=== PATIENT | male | born 1980 | race Caucasian/White ===

== ENCOUNTER → 2017-04-13 | Outpatient (CLI) | payer OTHER ==
[~2017-04-13] MED LIST: AMOXICILLIN500 M1 PO; AMOXICILLIN500 MG PO; CLEOCIN150 MG PO; DOXYCYCLINE MO100 MG PO; HYDROCODONE BIT1 T11 PO; KEFLEX500 MG PO; LAMICTAL100 MG PO; MOTRIN,RUFEN800 MG PO; MOTRIN800 MG PO; NAPROSYN500 MG PO; NORCO 5-325 TA1 EACH PO; VICODIN ES 7501 TAB PO
== END | disposition home or self-care (01) ==
LOC: RESCLI 08:02
DX: J30.9 Allergic rhinitis, unspecified (principal); H00.014 Hordeolum externum left upper eyelid; F31.9 Bipolar disorder, unspecified; E66.3 Overweight; Z86.59 Personal history of other mental and behavioral disorders

== ENCOUNTER 2018-01-13 10:07 | Emergency (ER) | payer OTHER ==
[~2018-01-13] VITALS: Ht 182.8 cm; Wt 90.7 kg
[2018-01-13 10:11] VITALS: BP 157/108
[2018-01-13] MEDS ORDERED: NAPROSYN500 MG PO (10:15)
== END 2018-01-13 11:37 | disposition home or self-care (01) ==
LOC: ED 10:07
DX: S60.221A Contusion of right hand, initial encounter (principal); S50.01XA Contusion of right elbow, initial encounter; Z79.899 Other long term (current) drug therapy; X58.XXXA Exposure to other specified factors, initial encounter; Y93.89 Activity, other specified; Y92.89 Other specified places as the place of occurrence of the external cause; Y99.8 Other external cause status

== ENCOUNTER → 2018-11-03 | Outpatient (CLI) | payer BC | END | disposition home or self-care (01) | LOC: ORTHO 02:34 | DX: M79.89 Other specified soft tissue disorders (principal); M79.641 Pain in right hand ==

== ENCOUNTER 2019-04-01 13:20 | Emergency (ER) | payer BC ==
[~2019-04-01] VITALS: Ht 182.8 cm; Wt 88.5 kg
[2019-04-01 13:22] VITALS: BP 169/105
== END 2019-04-01 15:34 | disposition home or self-care (01) ==
LOC: ED 13:20
DX: S00.33XA Contusion of nose, initial encounter (principal); S00.531A Contusion of lip, initial encounter; Z79.2 Long term (current) use of antibiotics; Z79.899 Other long term (current) drug therapy; Y04.2XXA Assault by strike against or bumped into by another person, initial encounter; Y93.89 Activity, other specified; Y92.89 Other specified places as the place of occurrence of the external cause; Y99.8 Other external cause status

== ENCOUNTER 2022-03-03 15:14 | Inpatient (IN) | payer BC ==
[~2022-03-03] VITALS: Ht 180.3 cm; Wt 74.6 kg
[~2022-03-03 15:14] MED LIST changes: +ATARAX,VISTARIL50 MG PO; +BUSPIRONE HCL10 MG PO; +LAMOTRIGINE200 MG PO; +NATURE'S BLEND F1 MG PO; +OMEPRAZOLE MAGN20 MG PO; +VITAMIN B-1100 M1 PO; +VYVANSE30 MG PO
[2022-03-03 15:23] VITALS: BP 152/103
[2022-03-03 16:00] VITALS: BP 120/80
[2022-03-03 16:21] LABS: BASO % 0.6 % (0.0-1.0); EOS # 0.1 10*3/uL (0.0-0.4); EOS % 1.2 % (1.0-4.0); HEMATOCRIT 43.3 % (42.0-52.0); LYMPH # 1.9 10*3/uL (1.3-4.4); LYMPH % 38.8 % (27.0-41.0); MEAN CELL VOLUME 91.5 fl (80.0-94.0); MEAN CORPUSCULAR HGB 31.7 pg (27.0-31.0); MEAN CORPUSCULAR HGB CONC 34.6 g/dl (33.0-37.0); MEAN PLATELET VOLUME 8.7 fl (9.6-12.3); MONO # 0.4 10*3/uL (0.1-1.0); MONO % 8.8 % (3.0-9.0); NEUT # 2.5 10*3/uL (2.3-7.9); NEUT % 50.4 % (47.0-73.0); PLATELET COUNT AUTOMATED 168 10*3/uL (130-400); RED BLOOD COUNT 4.73 10*6/uL (4.50-5.90); RED CELL DISTRI WIDTH 14.2 % (0-14.5)
[2022-03-03 16:35] LABS: ALKALINE PHOSPHATASE 166 U/L (45-117); BUN 12 mg/dl (7-24); CHLORIDE 107 mmol/L (98-107); CREATININE 0.98 mg/dL (0.70-1.30); POTASSIUM 3.7 mmol/L (3.5-5.1); SGOT/AST 144 IU/L (3-35); SGPT/ALT 151 U/L (12-78); SODIUM 143 mmol/L (136-145); TOTAL PROTEIN 7.3 gm/dL (6.4-8.2)
[2022-03-03 16:43] LABS: THYROID STIM HORMONE (HS) 0.481 uIU/ml (0.358-4.75)
[2022-03-03 16:43] LABS: BILIRUBIN Negative (Negative); BLOOD Negative (Negative); CLARITY Clear (Clear); COLOR Yellow (Yellow); GLUCOSE Negative (Negative); KETONE Negative (Negative); LEUKO ESTERASE Negative (Negative); NITRITE Negative (Negative); PH 6.5 (4.5-8.0); SPECIFIC GRAVITY <= 1.005 (1.001-1.030); UROBILINOGEN 0.2 E.U./dl (0.0-1.0)
[2022-03-03 16:51] LABS: URINE AMPHETAMINES < 1000 (1000ng/ml); URINE BARBITURATES < 200 (200ng/ml); URINE BENZODIAZEPINES < 200 (200ng/ml); URINE CANNABINOIDS (THC) > 50 (50ng/ml); URINE COCAINE < 300 (300ng/ml); URINE METHADONE < 300 (300ng/ml); URINE OPIATES < 300 (300ng/ml)
[2022-03-03 16:54] LABS: URINE PHENCYCLIDINE < 25 (25ng/ml)
[2022-03-03 18:16] VITALS: BP 120/80
[2022-03-03] MEDS ORDERED: LAMICTAL200 MG PO (18:50)
[2022-03-03] MEDS ORDERED: BUPROPION HYDR150 M3 PO (18:51)
[2022-03-03] MEDS ORDERED: CLONIDINE HCL0.1 MG PO (18:51)
[2022-03-03 20:00] VITALS: BP 116/74
[2022-03-04] VITALS: BP 114/69
[2022-03-04 05:39] LABS: ALKALINE PHOSPHATASE 148 U/L (45-117); BUN 13 mg/dl (7-24); CHLORIDE 106 mmol/L (98-107); CHOLESTEROL 241 mg/dL (<200); CREATININE 0.97 mg/dL (0.70-1.30); LDL CHOLESTEROL 89 mg/dL (9-159); POTASSIUM 3.6 mmol/L (3.5-5.1); SGOT/AST 122 IU/L (3-35); SGPT/ALT 135 U/L (12-78); SODIUM 141 mmol/L (136-145); TOTAL PROTEIN 6.5 gm/dL (6.4-8.2); TRIGLYCERIDES 85 mg/dl (<150)
[2022-03-04 06:22] LABS: BASO % 0.6 % (0.0-1.0); EOS # 0.1 10*3/uL (0.0-0.4); HEMATOCRIT 41.8 % (42.0-52.0); LYMPH # 1.2 10*3/uL (1.3-4.4); LYMPH % 37.6 % (27.0-41.0); MEAN CELL VOLUME 91.7 fl (80.0-94.0); MEAN CORPUSCULAR HGB 31.6 pg (27.0-31.0); MEAN CORPUSCULAR HGB CONC 34.4 g/dl (33.0-37.0); MEAN PLATELET VOLUME 9.3 fl (9.6-12.3); MONO # 0.3 10*3/uL (0.1-1.0); MONO % 9.4 % (3.0-9.0); NEUT # 1.6 10*3/uL (2.3-7.9); NEUT % 49.1 % (47.0-73.0); PLATELET COUNT AUTOMATED 132 10*3/uL (130-400); RED BLOOD COUNT 4.56 10*6/uL (4.50-5.90); WHITE BLOOD COUNT 3.3 10*3/uL (4.8-10.8)
[2022-03-04 06:35] LABS: ACT PARTIAL THROMBO TIME 24.1 SECONDS (20.0-32.1); INTERNATIONAL NORM RATIO 0.9 (2.0-3.5)
[2022-03-04 07:49] LABS: VITAMIN D, 25-HYDROXY 61.5 ng/mL (30-100)
[2022-03-04 08:00] VITALS: BP 129/91
[2022-03-04 12:00] VITALS: BP 145/98
[2022-03-04 15:46] VITALS: BP 142/100
[2022-03-04 20:00] VITALS: BP 136/93
[2022-03-05] VITALS: BP 126/81
[2022-03-05 08:00] VITALS: BP 112/85
[2022-03-05 12:00] VITALS: BP 127/90
[2022-03-05 16:00] VITALS: BP 129/85
[2022-03-05 20:00] VITALS: BP 109/80
[2022-03-06] VITALS: BP 99/63
[2022-03-06 08:00] VITALS: BP 103/73
== END 2022-03-06 13:02 | disposition home or self-care (01) | DRG 897 ==
LOC: ED 15:14 → 4E 17:05 → EDHOLD 17:05 → 4E 18:04
PROVIDERS: Nurse Practitioner Family; Student in an Organized Health Care Education/Training Program; ADMIT Internal Medicine; ATTEND Internal Medicine
DX: F10.239 Alcohol dependence with withdrawal, unspecified (principal); F17.210 Nicotine dependence, cigarettes, uncomplicated; R00.0 Tachycardia, unspecified; D72.819 Decreased white blood cell count, unspecified; F60.3 Borderline personality disorder; R74.01 Elevation of levels of liver transaminase levels; Z71.6 Tobacco abuse counseling; Z82.49 Family history of ischemic heart disease and other diseases of the circulatory system

== ENCOUNTER 2022-10-14 20:01 | Emergency (ER) | payer BC ==
[~2022-10-14] VITALS: Ht 182.8 cm; Wt 81.6 kg
[~2022-10-14 20:01] MED LIST changes: +BUPROPION HYDR150 M3 PO; +CLONIDINE HCL0.1 MG PO; +LAMICTAL200 MG PO
[2022-10-14 20:18] VITALS: BP 166/109
== END 2022-10-14 20:40 | disposition home or self-care (01) ==
LOC: ED 20:01
DX: F10.90 Alcohol use, unspecified, uncomplicated (principal); F17.210 Nicotine dependence, cigarettes, uncomplicated; Z98.890 Other specified postprocedural states; Z79.899 Other long term (current) drug therapy

== ENCOUNTER → 2023-05-11 | Outpatient (CLI) | payer MEDICAID | END | disposition home or self-care (01) | LOC: CT 14:32 | PROVIDERS: ATTEND Nurse Practitioner Primary Care | DX: S09.90XD Unspecified injury of head, subsequent encounter (principal); R51.9 Headache, unspecified; X58.XXXD Exposure to other specified factors, subsequent encounter ==

== ENCOUNTER → 2023-12-21 | Outpatient (CLI) | payer MEDICAID | END | disposition home or self-care (01) | LOC: MAMMO 01:26 | PROVIDERS: ATTEND Nurse Practitioner Family | DX: N62 Hypertrophy of breast (principal); N63.0 Unspecified lump in unspecified breast ==